=== PATIENT | female | born 2005 | race Hispanic/Latino ===

== ENCOUNTER 2024-05-10 14:41 | Emergency (ER) | payer SELFPAY ==
[2024-05-10 14:46] VITALS: BP 140/89; PULSE 128; RESP 18; TEMP 36.7; O2SAT 99; BMI 30.5
[2024-05-10 15:21] VITALS: BP 130/86; PULSE 93; O2SAT 100
[2024-05-10 15:30] VITALS: BP 134/93; PULSE 95; O2SAT 100
[2024-05-10 15:32] LABS: Add Manual Diff / Slide Review NO; Basophils Absolute Auto 100 /uL (0-100); Basophils Percent Auto 0.7 % (0-2); Eosinophils Absolute Auto 0 /uL (0-450); Eosinophils Percent Auto 0.2 % (2-4); Hematocrit 39.2 % (36-46); Hemoglobin 13.2 g/dL (12.0-16.0); Lymphocytes Absolute Auto 1900 /uL (1100-4500); Lymphocytes Percent Auto 22.7 % (25-40); Mean Corpuscular HGB Conc 33.7 % (30-36); Mean Corpuscular Hemoglobin 26.1 PG (26-34); Mean Corpuscular Volume 77.2 fL (80-100); Monocytes Absolute Auto 500 /uL (0-900); Monocytes Percent Auto 5.8 % (3-14); Neutrophils Absolute Auto 6000 /uL (1500-7000); Neutrophils Percent Auto 70.6 % (50-75); Platelet Count 388 X10^3/uL (150-400); Red Blood Cell Count 5.07 X10^6/uL (4.0-5.2); Red Cell Distribution Width 13.1 % (11.6-14.8); White Blood Cell Count 8.5 X10^3/uL (4.5-11.0)
--- NOTE | 2024-05-10 15:34 | ED.GENADULT ---
HPI - General Adult General Chief complaint: Abdominal Pain Stated complaint: Stomach pain, throwing up Time Seen by Provider: 05/10/24 15:03 Source: patient and production staff worker Mode of arrival: Ambulatory History of Present Illness HPI narrative: Patient is a 19-year-old female who is here for evaluation of right lower quadrant abdominal pain. States that her symptoms started this morning. She was from [facility]. She was seen by the medics and there was concern about appendicitis she was brought to the emergency department. No change in bowel habits. No vaginal bleeding. No urinary symptoms. No prior abdominal surgeries. Has not tried anything for the symptoms prior to arrival. Pain is located in the right lower quadrant. No fevers. No vomiting. Related Data Allergies Allergy/AdvReac Type Severity Reaction Status Date / Time No Known Drug Allergies Allergy Verified 05/10/24 14:46 Review of Systems Constitutional Constitutional: Reports system reviewed and no additional complaints, except as documented Gastrointestinal Gastrointestinal: Reports system reviewed and no additional complaints, except as documented Genitourinary Genitourinary: Reports system reviewed and no additional complaints, except as documented Musculoskeletal Musculoskeletal: Reports system reviewed and no additional complaints, except as documented Integumentary/Breasts Skin/Breast: Reports system reviewed and no additional complaints, except as documented Neurologic Neurologic: Reports system reviewed and no additional complaints, except as documented Patient History Social History Smoking Status: Never smoker Smoking Status: Never smoker Substance Use Type: does not use Exam Initial Vital Signs Initial Vital Signs: Vital Signs Temperature 98.1 F 05/10/24 14:46 Pulse Rate 128 H 05/10/24 14:46 Respiratory Rate 18 05/10/24 14:46 Blood Pressure 140/89 05/10/24 14:46 Pulse Oximetry 99 05/10/24 14:46 Oxygen Delivery Method Room Air 05/10/24 14:46 Const General: cooperative and comfortable HENMT Head: normal to inspection and normocephalic GI Inspection: normal to inspection and non-distended Palpation: soft, No firm, No guarding and tender (Right lower quadrant) Skin General: no rashes or lesions noted Neuro General: patient alert, patient awake and moves all extremities Course Orders Ordered: ED Orders 05/10/24 15:24 Complete Blood Count AUTO DIFF Stat Lipase Stat 05/10/24 15:35 CT abdomen pelvis w con Stat 05/10/24 15:55 Comprehensive Metabolic Panel Stat Sodium Chloride (Normal Saline 0.9%) 1,000 mls @ 125 mls/hr IV CONT CIPRIANO Last Admin: 05/10/24 15:44 Dose: 125 mls/hr Documented By: FRANCIE Vital Signs Vital signs: Vital Signs - 8 hr 05/10/24 14:46 Temperature 98.1 F Pulse Rate 128 H Respiratory Rate 18 Blood Pressure 140/89 Pulse Oximetry 99 Oxygen Delivery Method Room Air Medical Decision Making Lab Data Lab results reviewed: Yes I reviewed the patient's lab results. 05/10/24 15:24 05/10/24 15:55 Labs: Lab Results 05/10/24 05/10/24 Range/Units 15:24 15:55 WBC 8.5 (4.5-11.0) X10^3/uL RBC 5.07 (4.0-5.2) X10^6/uL Hgb 13.2 (12.0-16.0) g/dL Hct 39.2 (36-46) % MCV 77.2 L (80-100) fL MCH 26.1 (26-34) PG MCHC 33.7 (30-36) % RDW 13.1 (11.6-14.8) % Plt Count 388 (150-400) X10^3/uL Neut % (Auto) 70.6 (50-75) % Lymph % (Auto) 22.7 L (25-40) % [place] % (Auto) 5.8 (3-14) % Eos % (Auto) 0.2 L (2-4) % Baso % (Auto) 0.7 (0-2) % Neut # (Auto) 6000 (3136-6636) /uL Lymph # (Auto) 1900 (1911-9349) /uL [place] # (Auto) 500 (0-900) /uL Eos # (Auto) 0 (0-450) /uL Baso # (Auto) 100 (0-100) /uL Sodium 139 (137-145) mmol/L Potassium 3.6 (3.4-5.1) mmol/L Chloride 107 (98-107) mmol/L Carbon Dioxide 26 (22-32) mmol/L BUN 4 L (7-17) mg/dL Creatinine 0.53 (0.52-1.04) mg/dL Estimated GFR > 60 (>60) mL/min BUN/Creatinine Ratio 7.5 (6-22) Glucose 87 (70-100) mg/dL Calcium 9.1 (8.4-10.2) mg/dL Total Bilirubin 0.5 (0.2-1.3) mg/dL AST 20 (14-36) IU/L ALT 14 (<35) IU/L Alkaline Phosphatase 65 (38-126) U/L Total Protein 7.4 (6.3-8.2) g/dL Albumin 4.5 (3.5-5.0) g/dL Globulin 2.9 (1.7-4.1) g/dL Albumin/Globulin Ratio 1.6 (1.0-2.8) Lipase 55 (23-300) U/L Point of Care Testing Test Results Negative Urine Dip Bedside Urine Glucose Negative Bedside Urine Bilirubin - Negative Bedside Urine Ketone - Negative Urine Specific [place] 1.000 Bedside Urine Occult Blood - Negative Bedside Urine pH 7.0 Bedside Urine Protein - Negative Bedside Urine Urobilinogen - Negative Bedside Urine Nitrite - Negative Bedside Urine Leukocytes - Negative Esterase Point of care testing: Point of Care Testing Test Results Negative Urine Dip Bedside Urine Glucose Negative Bedside Urine Bilirubin - Negative Bedside Urine Ketone - Negative Urine Specific [place] 1.000 Bedside Urine Occult Blood - Negative Bedside Urine pH 7.0 Bedside Urine Protein - Negative Bedside Urine Urobilinogen - Negative Bedside Urine Nitrite - Negative Bedside Urine Leukocytes - Negative Esterase Imaging Data CT scan - abdomen/pelvis: Radiologist's Impression: PROCEDURE: CT ABDOMEN PELVIS W CON INDICATIONS: RLQ abd pain TECHNIQUE: After the administration of intravenous contrast, axial sections acquired from the lung bases to the pubic symphysis. Coronal and sagittal reformats were performed. For radiation dose reduction, the following was used: automated exposure control, adjustment of mA and/or kV according to patient size. COMPARISON: None. FINDINGS: Image quality: Diagnostic. Lower Chest: No significant findings. ABDOMEN: Liver: No solid mass. Gallbladder: No radiopaque gallstones or wall thickening. Biliary ducts: No biliary dilation. Pancreas: No ductal dilation. Spleen: Size is within normal limits. Adrenal Glands: No adrenal nodules. Kidneys and Ureters: No hydronephrosis. No solid mass. No complex renal cystic lesion which requires follow up. Stomach and Bowel: Normal colonic caliber, without significant wall thickening. The appendix is normal. Peritoneum: No abnormal intraperitoneal fluid. No free air. Ventral Wall: No significant ventral hernia. Abdominal Nodes: No retroperitoneal or mesenteric adenopathy by size criteria. Vessels: Aorta and inferior vena cava are normal in size. PELVIS: Pelvic Organs: Bilateral ovarian cysts are shown measuring 4.8 x 2.8 x 3.7 cm on the right and 5.4 x 3.0 x 2.6 cm on the left. The cyst on the right demonstrates some heterogeneous internal material suggestive of a hemorrhagic cyst. Bladder: No bladder wall thickening, accounting for underdistention. Pelvic Nodes: No enlarged lymph nodes. Miscellaneous: No inguinal hernias are seen. Bones: No aggressive osseous abnormality. IMPRESSION: 1. Bilateral ovarian cysts, likely physiologic but possibly contributing to symptoms. 2. Otherwise no CT evidence for the etiology of the patient's symptoms. Specifically, no appendicitis, diverticulitis, urolithiasis, or obstruction. [facility] Narrative Medical decision making narrative: Patient does have right lower quadrant abdominal pain however the CT scan shows no acute pathology. She does have ovarian cyst which could potentially because of the symptoms. I did discuss this with her. There was no indication for antibiotics. No indication for surgical consultation. She was given return precautions and follow-up instructions. She expressed understanding and agreement. Discharge Plan Departure Patient Disposition: Home Clinical Impression: Abdominal pain, Ovarian cyst Instructions: DI for Abdominal Pain-Adult Activity Restrictions/Additional Instructions: Your workup here in the emergency department today is very reassuring. There was no indication that there was appendicitis. Recommend you contact your primary doctor for follow-up. Return to the emergency department for new or worsening symptoms. Stand Alone Forms: Patient Portal/API
[2024-05-10] MEDS: SODIUM CHLORIDE 0.9% 1,000 ML 125 ML IV (15:44)
[2024-05-10 15:50] LABS: Lipase 55 U/L (23-300)
[2024-05-10 16:00] VITALS: BP 135/74; PULSE 103; O2SAT 100
[2024-05-10 16:14] LABS: Alanine Aminotransferase 14 IU/L (<35); Albumin 4.5 g/dL (3.5-5.0); Albumin Globulin Ratio 1.6 (1.0-2.8); Alkaline Phosphatase 65 U/L (38-126); Aspartate Aminotransferase 20 IU/L (14-36); BUN Creatinine Ratio 7.5 (6-22); Bilirubin Total 0.5 mg/dL (0.2-1.3); Blood Urea Nitrogen 4 mg/dL (7-17); Calcium 9.1 mg/dL (8.4-10.2); Carbon Dioxide 26 mmol/L (22-32); Chloride 107 mmol/L (98-107); Estimated Glomerular Filt Rate > 60 mL/min (>60); Globulin 2.9 g/dL (1.7-4.1); Glucose 87 mg/dL (70-100); HEMOLYSIS < 15 (0-50); Potassium 3.6 mmol/L (3.4-5.1); Sodium 139 mmol/L (137-145); Total Protein 7.4 g/dL (6.3-8.2)
[2024-05-10 16:30] VITALS: PULSE 93; O2SAT 99
== END 2024-05-10 17:46 | disposition home or self-care (01) ==
PROVIDERS: Emergency Provider Emergency Medicine
DX: N83.202 Unspecified ovarian cyst, left side (principal); N83.201 Unspecified ovarian cyst, right side; R10.31 Right lower quadrant pain
CPT/HCPCS: 36415; 74177; 80053; 81003; 81025; 83690; 85025; 99284; Q9967

== ENCOUNTER → 2024-05-20 12:02 | Outpatient (CLI) | payer SELFPAY | PROVIDERS: Referring Provider Obstetrics & Gynecology; Visit Provider Obstetrics & Gynecology | DX: R10.9 Unspecified abdominal pain (principal); N83.209 Unspecified ovarian cyst, unspecified side | CPT/HCPCS: 87491; 87563; 87591 ==

== ENCOUNTER → 2024-05-20 12:29 | Outpatient (CLI) | payer SELFPAY ==
--- NOTE | 2024-05-20 12:33 | DI.US.S_ITS ---
LIMITED ULTRASOUND OF RIGHT BREAST: 05/20/2024 CLINICAL: Palpable right breast lump and focal pain. No prior exams were available for comparison. Color flow and real-time ultrasound of the right breast 11 o'clock region were performed. There is an oval hypoechoic mass with circumscribed margins at 11 o'clock, 4 cm from the nipple corresponding to area of clinical concern. Color-flow imaging demonstrates vascularity is present. The mass measures 3.6 x 3.2 x 3.3 cm. There is an oval hypoechoic circumscribed mass at 10 o'clock, 4 cm from the nipple measuring 1.0 x 0.9 x 0.5 cm. Color-flow imaging demonstrates vascularity is present. IMPRESSION: SUSPICIOUS OF MALIGNANCY 1) Right breast 3.6 cm oval circumscribed mass at 11 o'clock corresponding to area of clinical concern. Finding is suspicious. Given large size of over 3 cm, ultrasound-guided biopsy is recommended as well as surgical consult for discussion of possible excision. 2) Right breast 1.0 centimeter oval circumscribed mass at 10 o'clock, 4 cm from the nipple. Defer management pending biopsy results of 11 o'clock mass. Findings and recommendations were discussed with the patient by Dr. Alexis at the time of imaging completion. This exam was interpreted at Station ID: [id number]. Electronically Signed By: Clara Carr M.D., Ph.D. eb/:05/20/2024 13:55:10 letter sent: Biopsy Required Ultrasound BI-RADS: 4a Low suspicion for malignancy
== END ==
PROVIDERS: Referring Provider Obstetrics & Gynecology; Visit Provider Obstetrics & Gynecology
DX: N63.11 Unspecified lump in the right breast, upper outer quadrant (principal)
CPT/HCPCS: 76642

== ENCOUNTER → 2024-05-27 13:27 | Outpatient (CLI) | payer SELFPAY ==
--- NOTE | 2024-05-27 | PATH_ITS ---
[facility] Accession Number: [id number] No. of containers..01 Tissue . 01 Material submitted: . breast - RIGHT BREAST MASS 11:00 4 CM FN . 01 Diagnosis: RIGHT BREAST, MASS 11 O'CLOCK 4 CM FN, ULTRASOUND-GUIDED CORE NEEDLE BIOPSY: Fibroepithelial lesion. Please see comment. MRV 05/29/2024 1447 Local . 01 Comment: The differential diagnosis includes a spectrum of benign fibroepithelial lesions including juvenile fibroadenoma, cellular fibroadenoma, and benign phyllodes tumor. Histologic features of malignancy, including atypia, diffuse hypercellularity, or significantly increased mitotic activity are not identified. There is no evidence of in-situ or invasive adenocarcinoma. . Surgical excision is recommended to evaluate margins, if clinically indicated. . Dr. Marie also reviewed this case and agrees with the interpretation. . 01 Electronically signed: . Jane Rodas MD, Pathologist NPI- [id number] . 01 Gross description: . Received in formalin with two identifiers and US bx breast, are multiple yellow-bañuelos soft tissue fragments admixed with hemorrhagic material aggregating to 2.0 x 1.6 x 0.2 cm. Filtered and submitted entirely in cassette A1. . Specimen was removed on 05/27/2024 at 1431 hours, time in formalin not provided, cold ischemic time cannot be calculated, total fixation time is approximately 39 hours. ([id number]) /CARLOS 05/28/2024 1010 Local . 01 Pathologist provided ICD-10: N63.10 . 01 CPT . 712939 Specimen Comment: A courtesy copy of this report has been sent to [facility] Performed at: [address] [address], [place], [place] [id number] MD Gaudencio Diaz MD Phone: [phone]
--- NOTE | 2024-05-27 13:35 | DI.US.S_ITS ---
ULTRASOUND GUIDED BIOPSY RIGHT BREAST USING VACUUM DEVICE WITH MARKING DEVICE INSERTED: 05/27/2024 CLINICAL: Right breast mass. PATIENT CONSENT: Risks (minor bleeding, infection, vasovagal reaction and repeat procedure), benefits and alternatives were explained to the patient and written informed consent was obtained. Correlation is made to exam dated: 05/20/2024 [facility]. An ultrasound guided biopsy using real-time ultrasound was performed for the 3.6 cm x 3.3 cm x 3.3 cm mass located in the right breast at 11 o'clock posterior depth 4 cm from the nipple. This was described on the previous ultrasound report. The skin was prepped in the usual manner. Local anesthetic was administered to the access site. A skin sharla was made in the breast. The abnormality was approached from the lateral aspect. A 12 gauge biopsy needle was placed adjacent to the abnormality under ultrasound guidance. Once the needle was documented to be in the correct location, four specimens were obtained using a vacuum assisted device. A clip was inserted into the biopsy cavity. A sterile dressing was applied to the access site. Post procedure imaging demonstrates the location device at the targeted area. The specimens were sent to the laboratory for pathological analysis. IMPRESSION: ULTRASOUND GUIDED BIOPSY BENIGN Ultrasound guided biopsy of the 3.6 cm x 3.3 cm x 3.3 cm mass in the right breast at 11 o'clock posterior depth 4 cm from the nipple was successful with no apparent post procedure complications. Pathology indicates fibroepithelial lesion. Differential diagnosis includes a spectrum of benign epithelial lesions including juvenile fibroadenoma, cellular , and benign phyllodes tumor. Histologic features of malignancy, including atypia, diffuse hypercellularity, or significantly increased mitotic activity are not identified. Pathology results are concordant with imaging findings. Recommend surgical consultation for discussion of possible excision due to greater than 3 cm size of the mass. Recommend follow up right breast ultrasound in 6 months for similar appearing mass at 10 o'clock, 4 cm from the nipple measuring up to 1.0 cm, which was described on prior ultrasound 05/20/24. This exam was interpreted at Station ID: [id number]. Khoi Chaparro M.D. Clara Carr M.D., Ph.D. porfirio dick/:06/04/2024 14:33:02
== END ==
PROVIDERS: Referring Provider Obstetrics & Gynecology; Visit Provider Obstetrics & Gynecology
DX: N63.11 Unspecified lump in the right breast, upper outer quadrant (principal)
CPT/HCPCS: 19083

== ENCOUNTER → 2025-09-15 13:59 | Outpatient (CLI) | payer SELFPAY ==
[2025-09-15 19:10] LABS: HCG Quantitative /Beta subunit < 2.39 mIU/mL
== END ==
LOC: LAB 13:59
PROVIDERS: PCP Physician Assistant; Visit Provider Physician Assistant Medical
DX: N92.6 Irregular menstruation, unspecified (principal)
CPT/HCPCS: 84702